=== PATIENT | male | born 1955 | race Caucasian/White ===

== ENCOUNTER 2020-05-26 14:35 | Outpatient (CLI) | payer MEDICARE, SELFPAY ==
--- NOTE | 2020-05-26 14:45 | USCV_ITS ---
Leno Forde Age: 64 Gender: M : 1955 Exam Date: 05/26/2020 15:36 Ordering Phys: Geoff Burgess MD Technologist: Haleigh Beltran Exam Location: [facility] [place] Indication: Chronic kidney disease Stage 4 Aortic Velocity @ SMA (cm/s) 133 RIGHT KIDNEY LEFT KIDNEY Velocity (cm/s) Velocity (cm/s) Sys/[place] Sys/[place] Resistive Index Resistive Index 272.4 / 18.3 0.93 Proximal Renal Artery 63.2 / 12.6 0.80 150.7 / 18.6 0.88 Mid Renal Artery 235.2 / 33.6 0.86 132.9 / 14.1 0.89 Distal Renal Artery 100.0 / 11.6 0.88 91.3 / 10.1 0.89 Hilar 134.4 / 18.4 0.86 23.9 / 5.4 0.78 Upper Pole 34.3 / 5.8 0.83 30.5 / 9.7 0.68 Mid Pole 36.4 / 6.6 0.82 30.6 / 6.6 0.78 Lower Pole 50.0 / 6.2 0.88 2.70 Renal Aortic Ratio 1.77 Accleration Index (cm/sec2) 3582.0 Hilar 9500.0 0 0 2283.0 Upper Pole 3850.0 0 0 1264.0 Mid Pole 2400.0 0 0 2483.0 Lower Pole 1877.0 0 0 128.4 Kidney Length (mm) 137.4 FINDINGS Comparison, 10/07/18. Significant elevation of systolic velocity right proximal renal artery, mild turbulence. Moderate elevation of systolic velocity left mid renal artery. Mild bilateral cortical thinning with no solid mass or hyrdronephrosis. CONCLUSIONS Hemodynamically significant (>60% in severity) right renal artery stenosis. Moderate stenosis just less then 60% left renal artery. Progression of stenosis since 2018. Dr. Paige Chaney DO (Electronically Signed) Final Date: 27 May 2020 08:54 S
== END 2020-05-26 14:36 | disposition home or self-care (01) ==
LOC: US 14:40
PROVIDERS: PCP Family Medicine; Visit Provider Internal Medicine
DX: N18.4 Chronic kidney disease, stage 4 (severe) (principal); I70.1 Atherosclerosis of renal artery
CPT/HCPCS: 93975